=== PATIENT | male | born 1970 | race African-American/Black ===

== ENCOUNTER 2018-09-24 12:38 | Emergency (ER) | payer OTHER ==
[2018-09-24] MEDS: METHYLPREDNISOLONE 125 MG INJ IM (14:36)
[2018-09-24] MEDS: KETOROLAC 60 MG INJ IM (14:36)
[2018-09-24] MEDS: METHOCARBAMOL 750 MG TAB PO (14:38)
== END 2018-09-24 15:07 | disposition home or self-care (01) ==
LOC: FTE 12:38
DX: M54.32 Sciatica, left side (principal); F17.210 Nicotine dependence, cigarettes, uncomplicated; I10 Essential (primary) hypertension; Z79.82 Long term (current) use of aspirin
CPT/HCPCS: 96372; 99284-25

== ENCOUNTER 2019-05-01 17:48 | Emergency (ER) | payer OTHER ==
[2019-05-01] MEDS: KETOROLAC 30 MG INJ IM (19:24)
== END 2019-05-01 19:57 | disposition home or self-care (01) ==
LOC: FTE 17:48
DX: M54.42 Lumbago with sciatica, left side (principal); F17.210 Nicotine dependence, cigarettes, uncomplicated; Z79.82 Long term (current) use of aspirin
CPT/HCPCS: 96372; 99284-25